=== PATIENT | female | born 1955 | race Caucasian/White ===

== ENCOUNTER → 2023-09-25 09:48 | Outpatient (REF) | payer MEDICARE, OTHER, SELFPAY | LOC: HWRAD 09:48 | PROVIDERS: ATTENDING PHYSICIAN Internal Medicine Rheumatology; FAMILY PHYSICIAN Internal Medicine | DX: M81.0 Age-related osteoporosis without current pathological fracture (principal); Z13.820 Encounter for screening for osteoporosis | CPT/HCPCS: 77080 ==

== ENCOUNTER → 2023-12-15 10:28 | Outpatient (REF) | payer MEDICARE, OTHER, SELFPAY | LOC: WDC 10:28 | PROVIDERS: ATTENDING PHYSICIAN Internal Medicine | DX: Z12.31 Encounter for screening mammogram for malignant neoplasm of breast (principal) | CPT/HCPCS: 77063; 77067 ==

== ENCOUNTER → 2024-06-22 12:09 | Outpatient (REF) | payer MEDICARE, OTHER, SELFPAY | LOC: HWRCS 12:09 | PROVIDERS: ATTENDING PHYSICIAN Internal Medicine; FAMILY PHYSICIAN Internal Medicine | DX: Z01.810 Encounter for preprocedural cardiovascular examination (principal); R07.89 Other chest pain; R94.31 Abnormal electrocardiogram [ECG] [EKG]; I10 Essential (primary) hypertension | CPT/HCPCS: 78452; 93017; A9500; J2785 ==

== ENCOUNTER → 2024-06-25 12:47 | Outpatient (REF) | payer MEDICARE, OTHER, SELFPAY | LOC: HWRCS 12:47 | PROVIDERS: ATTENDING PHYSICIAN Internal Medicine; FAMILY PHYSICIAN Internal Medicine | DX: Z01.810 Encounter for preprocedural cardiovascular examination (principal); I10 Essential (primary) hypertension; R07.89 Other chest pain; R94.31 Abnormal electrocardiogram [ECG] [EKG] | CPT/HCPCS: 93306 ==

== ENCOUNTER → 2024-12-15 11:22 | Outpatient (REF) | payer MEDICARE, OTHER, SELFPAY | LOC: WDC 11:22 | PROVIDERS: ATTENDING PHYSICIAN Internal Medicine | DX: Z12.31 Encounter for screening mammogram for malignant neoplasm of breast (principal) | CPT/HCPCS: 77063; 77067 ==